=== PATIENT | male | born 1975 | race Caucasian/White ===

== ENCOUNTER 2024-05-07 03:38 | Emergency (ER) | payer MEDICAID ==
[~2024-05-07] VITALS: Ht 177.8 cm; Wt 77.0 kg
[2024-05-07 03:59] VITALS: O2SAT 98
[2024-05-07 05:35] LABS: CHLORIDE 101 mEq/L (98-107); POTASSIUM 4.6 mEq/L (3.5-5.1); SODIUM 136 mEq/L (136-145)
[2024-05-07 05:36] LABS: CARBON DIOXIDE 26 mEq/L (21-32)
[2024-05-07 05:37] LABS: CALCIUM 10.6 mg/dL (8.7-10.4)
[2024-05-07 05:41] LABS: CREATININE 1.1 mg/dL (0.6-1.3); GLUCOSE 108 mg/dL (70-105); UREA NITROGEN BLOOD 10 mg/dL (9-23)
[2024-05-07 05:42] LABS: ETHANOL BLOOD < 10 mg/dL (<10)
[2024-05-07 05:44] LABS: BASOPHILS % 0.3 % (0.0-2.0); HEMATOCRIT. 51.3 % (42.0-52.0); HEMOGLOBIN. 17.4 g/dL (14.0-18.0); LYMPHOCYTES % 14.4 % (20.0-50.0); MEAN CORPUSCULAR HGB CONC 33.9 g/dL (31.0-37.0); MEAN CORPUSCULAR VOLUME 91.5 fL (80.0-94.0); MEAN PLATELET VOLUME 8.4 fl (7.4-10.4); MONOCYTES % 4.6 % (2.0-8.0); NEUTROPHILS % 78.7 % (40.0-76.0); PLATELET 273 x1000/uL (130-400); RED CELL DISTRIBUTION WIDTH 14.6 % (11.6-14.6); WHITE BLOOD COUNT 7.5 x1000/uL (4.5-11.0)
[2024-05-07] MEDS ORDERED: LEVETIRACETAM 500MG PREMIX 100 ML IV ONE ×3 (05:45→08:15)
[2024-05-07 07:21] LABS: ACETAMINOPHEN < 2 ug/mL (10-30)
[2024-05-07 07:39] LABS: TROPONIN I HIGH SENSITIVITY 11 ng/L (3.0-53)
[2024-05-07 07:40] LABS: ALANINE AMINOTRANSFERASE 23 IU/L (10-49); ASPARTATE AMINOTRANSFERASE 47 IU/L (<34); BILIRUBIN DIRECT 0.1 mg/dL (<=3.0); BILIRUBIN TOTAL 0.6 mg/dL (0.1-1.0); PROTEIN TOTAL 8.3 g/dL (6.0-8.3)
[2024-05-07 07:54] VITALS: BP 120/70; PULSE 81; RESP 18; TEMP 37.2; O2SAT 98
[2024-05-07 08:00] LABS: CLARITY URINE CLEAR (CLEAR); COLOR URINE YELLOW (YELLOW); GLUCOSE URINE NEGATIVE (NEGATIVE); KETONES URINE NEGATIVE (NEGATIVE); NITRITE URINE NEGATIVE (NEGATIVE); OCCULT BLOOD URINE NEGATIVE (NEGATIVE); PROTEIN URINE NEGATIVE (NEGATIVE); SPECIFIC GRAVITY URINE 1.015 (1.005-1.030)
[2024-05-07 08:01] LABS: LEUKOCYTE ESTERASE URINE NEGATIVE (NEGATIVE); UROBILINOGEN URINE 0.2 E.U./dL (0.2-1.0)
[2024-05-07] MEDS ORDERED: LEVETIRACETAM 500MG PREMIX 100 ML IV NR (08:15)
[2024-05-07] MEDS ORDERED: LORAZEPAM 2MG/ML INJ IV PRN (08:15)
[2024-05-07] MEDS ORDERED: MAGNESIUM/ALUMINUM HYDROXIDE/SIMETHICONE 30ML UDC PO PRN (08:15)
[2024-05-07] MEDS ORDERED: ONDANSETRON HCL 4MG/2ML INJ IV PRN (08:15)
[2024-05-07] MEDS ORDERED: CLONIDINE 0.1MG TABLET PO PRN (08:15)
[2024-05-07] MEDS ORDERED: IPRATROPIUM/ALBUTEROL 0.5-3(2.5)MG/3ML NEB HHN PRN (08:15)
[2024-05-07 08:59] LABS: *AMPHETAMINES SCREEN URINE NEGATIVE (NEGATIVE); *BARBITURATES SCREEN URINE NEGATIVE (NEGATIVE); *BENZODIAZEPINES SCREEN URINE PRESUMPTIVE POSITIVE (NEGATIVE); *COCAINE SCREEN URINE NEGATIVE (NEGATIVE); CANNABINOID URINE SCREEN NEGATIVE (NEGATIVE); METHADONE URINE SCREEN Pos (NEGATIVE); OPIATES URINE SCREEN NEGATIVE (NEGATIVE); PHENCYCLIDINE URINE SCREEN NEGATIVE (NEGATIVE)
[2024-05-07 09:00] LABS: ECSTASY MDMA SCREEN URINE NEGATIVE (NEGATIVE)
[2024-05-07 10:18] LABS: TROPONIN I HIGH SENSITIVITY 33 ng/L (3.0-53)
[2024-05-07 11:57] LABS: CREATINE KINASE 381 IU/L (46-171)
== END 2024-05-07 09:20 | disposition left against medical advice (07) ==
LOC: ER 03:38 → EDBEDREQ 07:47 → CANBEDREQ 09:19 → ER 09:20
DX: R25.1 Tremor, unspecified (principal); R06.02 Shortness of breath
CPT/HCPCS: 80076; 80305; 80048; 81003; 80307; 80329; 80320; 82550; 85025; 84484; 36415; 71045; 70450; 93005; 99285; J1953; J2060; Z7610 ×2; G0480